=== PATIENT | male | born 1970 | race Caucasian/White ===

== ENCOUNTER 2017-11-26 10:34 | Emergency (ER) | payer BC ==
[2017-11-26 10:58] VITALS: BP 158/99
--- NOTE | 2017-11-26 11:50 | EDM.PDOC ---
ED HPI GENERAL MEDICAL PROBLEM - General Chief Complaint: Neck Problem Stated Complaint: SOB/NECK PAIN Time Seen by Provider: 11/26/17 10:57 Source of Information: Reports: Patient History Limitations: Reports: No Limitations - History of Present Illness INITIAL COMMENTS - FREE TEXT/NARRATIVE: 47-year-old male is presents for evaluation and treatment of shortness of breath and left-sided neck pain. Patient present to the walk-in clinic but was sent to us for further management care. Patient reports he has been feeling short of breath the last couple days. No chest pain. Reports that he is dyspneic on exertion. No lightheadedness, dizziness or syncope. He reports he was ill several weeks ago with cold-like symptoms but feels this is mostly resolved. Additionally, he also reports fatigue. Patient also reports now over the last 2 days he been experiencing left-sided neck pain. Reports odynophagia. No fevers or chills. Patient has chronic low back pain. He is Scheduled to have surgery on his low back in the near future. Patient was not on any antibiotics cold symptoms. 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 (see below) Other Treatments SET UP WORKER: none Left Neck Pain Score (Numeric/FACES): 1 - Related Data Allergies Allergy/AdvReac Type Severity Reaction Status Date / Time No Known Allergies Allergy Verified 02/23/16 10:34 Home Meds: Home Meds Lisinopril 10 mg PO DAILY 11/26/17 [History] traMADol [Ultram] 100 mg PO DAILY 11/26/17 [History] Past Medical History - Past Health History Medical/Surgical History: Denies Medical/Surgical History Cardiovascular History: Reports: Hypertension Musculoskeletal History: Reports: Other (See Below) Other Musculoskeletal History: back surgery about 1.5 yrs ago Neurological History: Reports: Other (See Below) Other Neuro History: Low back chronic pain - surgery on 03/13 - Past Surgical History Musculoskeletal Surgical History: Reports: Arthroscopic Procedure Social & Family History - Tobacco Use Smoking Status *Q: Never Smoker - Caffeine Use Caffeine Use: Reports: Coffee, Soda Other Caffeine Use: 2 cups/day - Recreational Drug Use Recreational Drug Use: No - Living Situation & Occupation Living situation: Reports: , with Spouse, with Family Occupation: Employed ED ROS ENT - Review of Systems Review Of Systems: See Below Constitutional: Denies: Fever HEENT: Reports: Throat Pain (left), Other (reports odynophagia). Denies: Ear Pain Respiratory: Reports: Shortness of Breath Cardiovascular: Reports: Dyspnea on Exertion. Denies: Chest Pain, Lightheadedness, Syncope GI/Abdominal: Denies: Abdominal Pain, Nausea, Vomiting : Reports: No Symptoms Neurological: Denies: Syncope ED EXAM, ENT - Physical Exam Exam: See Below Exam Limited By: No Limitations General Appearance: Alert, WD/WN, No Apparent Distress Ears: Normal External Exam, Normal Canal, Hearing Grossly Normal, Normal TMs Nose: Normal Inspection Mouth/Throat: Normal Inspection, Normal Lips, Normal Oropharynx. No: Pharyngeal Erythema, Tonsillar Erythema, Tonsillar Exudates, Tonsillar Swelling Neck: Normal Inspection, Full Range of Motion, Lymphadenopathy (L), Other ( reprots discomfort to the left lateral neck) Respiratory/Chest: No Respiratory Distress, Lungs Clear, Normal Breath Sounds Cardiovascular: Normal Peripheral Pulses, Regular Rate, Rhythm, No Murmur GI/Abdominal: Soft, Non-Tender Neurological: Alert, Oriented, Normal Cognition Psychiatric: Normal Affect, Normal Mood Skin: Warm, Dry, Normal Color EKG INTERPRETATION EKG Date: 11/26/17 Time: 11:08 Rhythm: NSR Rate (Beats/Min): 70 [place]: Normal P-Wave: Present QRS: Normal ST-T: Normal QT: Normal EKG Interpretation Comments: NSR at 70 bpm. LAD (-43 degrees), Initial poor "R" wave progression wiht late transition. Borderline 1st degree AV block. Reviewed by myself and Dr. Mason. Course - Vital Signs Last Recorded V/S: Last Vital Signs Temp 97.8 F 11/26/17 10:57 Pulse 63 11/26/17 10:57 Resp 20 11/26/17 10:57 BP 158/99 H 11/26/17 10:57 Pulse Ox 99 11/26/17 10:57 - Orders/Labs/Meds Orders: Active Orders 24 hr Category Date Time Status EKG Documentation Completion [RC] ASDIRECTED Care 11/26/17 11:05 Active Chest 2V [CR] Stat Exams 11/26/17 11:23 Taken CULTURE STREP A CONFIRMATION [RM] Stat Lab 11/26/17 11:29 Results STREP SCRN A RAPID W CULT CONF [RM] Stat Lab 11/26/17 11:29 Ordered EKG 12 Lead [EK] Stat Ther 11/26/17 11:05 Ordered Labs: Laboratory Tests 11/26/17 11/26/17 Range/Units 11:30 11:30 WBC 5.90 (4.23-9.07) K/mm3 RBC 4.62 L (4.63-6.08) M/mm3 Hgb 13.8 (13.7-17.5) gm/L Hct 39.6 L (40.1-51.0) % MCV 85.7 (79.0-92.2) fl MCH 29.9 (25.7-32.2) pg MCHC 34.8 (32.2-35.5) g/dl RDW Std Deviation 39.8 (35.1-43.9) fL Plt Count 199 (163-337) K/mm3 MPV 11.3 (9.4-12.3) fl Neutrophils % (Manual) 74 H (40-60) % Band Neutrophils % 0 (0-10) % Lymphocytes % (Manual) 23 (20-40) % Atypical Lymphs % 0 % Monocytes % (Manual) 2 (2-10) % Eosinophils % (Manual) 1 (0.8-7.0) % Basophils % (Manual) 0 L (0.2-1.2) Platelet Estimate Adequate RBC Morph Comment Normal Sodium 139 (136-145) mEq/L Potassium 4.4 (3.5-5.1) mEq/L Chloride 103 (98-107) mEq/L Carbon Dioxide 28 (21-32) mEq/L Anion Gap 12.4 (5-15) BUN 14 (7-18) mg/dL Creatinine 1.0 (0.7-1.3) mg/dL Est Cr Clr Drug Dosing 106.18 mL/min Estimated GFR (MDRD) > 60 (>60) mL/min BUN/Creatinine Ratio 14.0 (14-18) Glucose 100 (74-106) mg/dL Calcium 9.5 (8.5-10.1) mg/dL Total Bilirubin 0.9 (0.2-1.0) mg/dL AST 49 H (15-37) U/L ALT 98 H (16-63) U/L Alkaline Phosphatase 96 (46-116) U/L Troponin I 0.032 (0.00-0.056) ng/mL C-Reactive Protein < 0.2 (<1.0) mg/dL Total Protein 7.7 (6.4-8.2) g/dl Albumin 4.0 (3.4-5.0) g/dl Globulin 3.7 gm/dL Albumin/Globulin Ratio 1.1 (1-2) - Radiology Interpretation Free Text/Narrative:: Chest x-ray shows no acute intrathoracic process. - Re-Assessments/Exams Free Text/Narrative Re-Assessment/Exam: 11/26/17 13:10 Reviewed the labs, EKG and imaging with the patient. Likely viral images possible he also pulled a muscle like a sternocleidomastoid what he was golfing. Recommend symptomatic care. Follow-up in one to 2 weeks if not better. Discharge instructions as documented. Departure - Departure Time of Disposition: 13:11 Disposition: Home, Self-Care 01 Condition: Good Clinical Impression: Viral upper respiratory illness - Discharge Information *PRESCRIPTION DRUG MONITORING PROGRAM REVIEWED*: No *COPY OF PRESCRIPTION DRUG MONITORING REPORT IN PATIENT ROSA: No Instructions: Viral Respiratory Infection, [id number] Referrals: Eun Reis MD [Primary Care Provider] - Forms: ED Department Discharge Additional Instructions: Recommends symptomatic care. [id number] Tylenol or Motrin as needed for pain relief. may also try something like heat to the sore area for additional pain relief. Expect this to last about 1-2 weeks. If it persists, follow-up with family medicine provider. Please return the ER if your symptoms change or worsen. - My Orders Last 24 Hours: My Active Orders 11/26/17 11:05 EKG Documentation Completion [RC] ASDIRECTED EKG 12 Lead [EK] Stat 11/26/17 11:23 Chest 2V [CR] Stat 11/26/17 11:29 CULTURE STREP A CONFIRMATION [RM] Stat STREP SCRN A RAPID W CULT CONF [RM] Stat - Assessment/Plan Last 24 Hours: My Active Orders 11/26/17 11:05 EKG Documentation Completion [RC] ASDIRECTED EKG 12 Lead [EK] Stat 11/26/17 11:23 Chest 2V [CR] Stat 11/26/17 11:29 CULTURE STREP A CONFIRMATION [RM] Stat STREP SCRN A RAPID W CULT CONF [RM] Stat
--- NOTE | 2017-11-29 08:37 | CR ---
Chest: Two views of the chest were obtained. Comparison: No prior chest x-ray. Heart size and mediastinum are within normal limits. Lungs are clear. Bony structures appear within normal limits for the patient's age. Impression: 1. Nothing acute is seen on two-view chest x-ray. Diagnostic code #1
== END 2017-11-26 13:20 | disposition home or self-care (01) ==
LOC: JD.ED 10:34
DX: J06.9 Acute upper respiratory infection, unspecified (principal); I10 Essential (primary) hypertension; Z79.899 Other long term (current) drug therapy
CPT/HCPCS: 36415; 71046; 71046-26; 80053; 84484; 85007; 85027; 86140; 87081; 87430; 93005; 93010; 99283; 99284-25